=== PATIENT | female | born 1995 | race Caucasian/White ===

== ENCOUNTER 2017-12-03 | Emergency (ER) | payer SELFPAY ==
--- NOTE | 2017-12-03 15:50 | ER ---
Nurse's Notes [facility] Name: Sanaz Wilson Age: 22 yrs Sex: Female : 1995 Arrival Date: 12/03/2017 Time: 15:13 Bed Waiting Private MD: Frandy Boyce Diagnosis: Presentation: 12/03 15:38 Note called name 3 times, no answer. tw2 15:49 Note called 3 times no answer. tw2 ED Course: 15:13 Patient arrived in ED. rg4 15:13 Frandy Boyce MD is Private Physician. rg4 Administered Medications: No medications were administered Outcome: 15:50 Patient left the ED. tw2 Signatures: Mikaela Hawkins RN RN tw2 Makenna Goetz rg4
== END 2017-12-03 15:50 | disposition left against medical advice (07) ==
DX: Z53.21 Procedure and treatment not carried out due to patient leaving prior to being seen by health care provider (principal)

== ENCOUNTER 2022-08-26 11:09 | Observation (INO) | payer OTHER ==
--- OUTSIDE RECORDS SUMMARY | 2022-08-26 11:13 | XMS REPORT | Continuity of Care Document ---
:1995 Author Organization [facility] Address [address] [place] [address] [address]. [address] [place] [address] Care Team Providers Name Role Phone [email or web address] Attending Clinician Unavailable Debbie Seirra Attending Clinician Unavailable Salina Richey Attending Clinician Unavailable Beba Silva Attending Clinician Unavailable Alvino Alexandre Attending Clinician [phone] HERBERTH Admitting Clinician Unavailable Alvino Alexandre Unavailable [phone] Payers Payer Name Policy Type Policy Number Effective Date Expiration Date S ource Sliding Fee - CI [id number] 2019 2020 [facility] 1 00:00:00 00:00:00 [facility] Health Sliding Fee - MC [id number] 2019 2019 [facility] Cat 1 00:00:00 00:00:00 [facility] Health Problems Condition Condition Condition Status Onset Resolution Last Treating Co mments Source Name Details Category Date Date Treatment Clinician Date Regular Condition Active 2018-092019-06-22 Sabrina Alexandre astigmatis 0-03 10:07:36 Alvino Comm uni m, 00:00: ty bilateral 00 Health Allergies, Adverse Reactions, Alerts Allergy Allergy Status Severity Reaction(s) Onset Inactive Treating Comm ents Source Name Type Date Date Clinician SULFA Drug Active High 2018-09 [facility] allergy Criticali 0-03 Commun i (disorde ty 00:00: ty r) 00 Health Social History Social Habit Start Date Stop Date Quantity Comments Source time of call 2019-10-25 2019-10-25 10/25/2019 4:54 [facility] 16:54:27 16:54:27 PM Health Medications This patient has no known medications. Procedures Procedure Date / Time Performing Clinician Source Performed Spherocyl, GERARD plano to 2019-06-22 10:17:56 Debbie Sierra [facility] +/- 4.00d sphere, 0.12 Health to 2.00d cyl, per lens Frames, purchases 2019-06-22 10:17:43 Debbie Sierra [facility] New [facility] Intermediate 2019-06-22 10:06:13 Alvino Alexandre [facility] Opt - [id number] Health Encounters Start End Encounter Admission Attending Care Care Encounter Source Date/Time Date/Time Type Type Clinicians Facility Department ID 2022-04-17 2022-04-17 Outpatient DESAI_KES [facility] [id number] 00:00:00 00:00:00 [id number] 2019-10-25 2019-10-25 Office Debbie Sierra Leglynda En counter/ Legacy 00:00:00 00:00:00 Visit Salina Richey [facility] [id number] [id number] [facility] 2019-06-28 2019-06-28 Office Mariela [facility] Vision Encoun ter/ Legacy 00:00:00 00:00:00 Visit Debbie [id number] Com chevy [id number] [facility] 2019-06-28 2019-06-28 Office Zhanna [facility] Public Enc ounter/ Legacy 00:00:00 00:00:00 Visit zhen [facility] [id number] [facility]ly [facility] [id number] [facility] 2019-06-23 2019-06-23 Office Alvino Alexandre [facility] Vision Enc ounter/ Legacy 00:00:00 00:00:00 Visit [id number] Com chevy [id number] [facility] 2019-06-22 2019-06-22 Office Alvino Alexandre [facility] Vision Enc ounter/ Legacy 00:00:00 00:00:00 Visit [id number] Com chevy [id number] [facility] 2019-06-22 2019-06-22 Office Alvino Alexandre [facility] Vision Enc ounter/ Legacy 00:00:00 00:00:00 Visit [id number] Com chevy [id number] [facility] 2019-06-22 2019-06-22 Office Alvino Alexandre [facility] Vision Enc ounter/ Legacy 00:00:00 00:00:00 Visit [id number] Com chevy [id number] [facility] 2019-06-22 2019-06-22 Office Alvino Alexandre [facility] Vision Enc ounter/ Legacy 00:00:00 00:00:00 Visit [id number] Com chevy [id number] [facility] 2019-06-22 2019-06-22 Office Alvino Alexandre [facility] Vision Enc ounter/ Legacy 00:00:00 00:00:00 Visit Debbie Sierra [id number] [facility] [id number] [facility] 2019-06-22 2019-06-22 Office Mariela [facility] Vision Encoun ter/ Legacy 00:00:00 00:00:00 Visit Debbie [id number] Com chevy [id number] [facility] Results This patient has no known results.
[2022-08-26] MEDS ORDERED: ONDANSETRON 4 MG/2 ML VIAL ONE ×2 (11:50→15:54)
[2022-08-26] MEDS ORDERED: MORPHINE 4 MG/ML SYR ONE (11:50)
[2022-08-26 12:13] LABS: Absolute Lymphocytes (CBC) 1.3 K/uL (0.7-4.9); Hematocrit 37.2 % (36.0-45.0); Lymphocytes % 16.7 % (15.3-44.8); MCV 86.4 fL (80-100); MPV 7.5 fL (7.6-11.3)
[2022-08-26 12:26] LABS: Albumin 3.6 g/dL (3.4-5.0); Bilirubin Total 0.4 mg/dL (0.2-1.0); Potassium 3.5 mmol/L (3.5-5.1); Protein, Total 7.5 g/dL (6.4-8.2)
[2022-08-26 12:56] LABS: Urine Blood Negative (Negative); Urine Glucose Negative (Negative); Urine Protein Negative (Negative); Urine pH 5.5 (5.0-7.0)
--- NOTE | 2022-08-26 13:29 | RAD REPORT ---
EXAM DESCRIPTION: CT - Abdomen Pelvis W Contrast - 08/26/2022 1:05 pm CLINICAL HISTORY: right lower abdominal pain COMPARISON: No comparisons TECHNIQUE: Biphasic, helical CT imaging of the abdomen and pelvis was performed following 100 ml non -ionic IV contrast. Oral contrast: No. All CT scans are performed using dose optimization technique as appropriate and may include automated exposure control or mA/KV adjustment according to patient size. FINDINGS: No suspicious findings in the lung bases. The liver, spleen, and pancreas show no suspicious findings. Gallbladder is tightly contracted limiti ng assessment of the lumen. Acute gallbladder process is unlikely. No biliary tree dilatation. Renal function is symmetric with no hydronephrosis. In the superolateral right kidney there is a 13 m illimeter area of decreased parenchymal enhancement. Margins are not well defined. This does not have simple cyst characteristics. A minimal focus of pyelonephritis cannot be excluded and can be correla jackie with any UA abnormalities. No pyelonephritis or acute parenchymal process. Urinary bladder is onl y partially filled. No bladder wall thickening or edema identified. No adrenal abnormalities. Uterus and ovaries show no suspicious findings. Right ovary is along the right posterosuperior margin of the uterus probably containing cysts. Physiologic quantity of free fluid is present in the cul de sac. Stomach and small bowel show no suspicious findings. No acute finding of the colon. The appendix is abnormal. The mid and distal appendix are dilated to 13 mm. Wall is thickened and zohreh matous. There is stranding in the surrounding periappendiceal fat. No appendicolith seen. There are n umerous reactive right lower quadrant lymph nodes. No free air or pneumatosis. No abscess or abnormal fluid collections seen. No hernia, mass or bulky lymphadenopathy. A few small mesenteric lymph nodes are also present. No suspicious bony findings. Findings telephoned to the referring clinician 1325 hours IMPRESSION: Acute appendicitis. Perforation is not suspected. Appendix is in classic right lower richard drant location. Small area of diminished enhancement in the superolateral right kidney not clearly representing a cys t. Small focus of pyelonephritis cannot be excluded and needs correlation with clinical and laborator y findings.
--- NOTE | 2022-08-26 13:47 | EDPHYS ---
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 - Social history:: Smoking status: Patient denies any tobacco usage or history of. Vital Signs: 11:16 Pulse 67; Resp 15; Temp 98.0; Pulse Ox 100% ; Weight 113.4 kg; Height 5 ft. 6 in. vg1 (167.64 cm); Pain 6/10; 12:50 BP 136 / 96; Pulse 71; Resp 16 S; Pulse Ox 99% on R/A; Pain 4/10; kc6 11:16 Body Mass Index 40.35 (113.40 kg, 167.64 cm) vg1 MDM: 11:22 Patient medically screened. [facility] 13:45 Data reviewed: vital signs, nurses notes. Counseling: I had a detailed discussion with kathryn the patient and/or guardian regarding: the historical points, exam findings, and any diagnostic results supporting the discharge/admit diagnosis, lab results, radiology results, the need for further work-up and treatment in the hospital. 08/26 11:23 Order name: IV Saline Lock; Complete Time: 12:03 [facility] 08/26 11:23 Order name: Labs collected and sent; Complete Time: 12:03 [facility] 08/26 11:23 Order name: CBC with Diff; Complete Time: 12:26 [facility] 08/26 11:23 Order name: CMP; Complete Time: 12:26 [facility] 08/26 11:23 Order name: Lipase; Complete Time: 12:26 [facility] 08/26 11:23 Order name: Urine Dipstick-Ancillary (obtain specimen); Complete Time: 12:56 [facility] 08/26 11:23 Order name: Urine Test (obtain specimen); Complete Time: 12:56 [facility] 08/26 12:56 Order name: Urine --Ancillary (enter results); Complete Time: 13:17 bd 08/26 11:23 Order name: CT Abd/Pelvis - IV Contrast Only; Complete Time: 13:35 [facility] 08/26 12:56 Order name: Urine Dipstick-Ancillary; Complete Time: 13:17 EDMS Administered Medications: 12:03 Drug: Zofran (Ondansetron) 4 mg Route: IVP; Site: right antecubital; kc6 12:03 Drug: morphine 4 mg Route: IVP; Infused Over: 4 mins; Site: right antecubital; kc6 Disposition Summary: 08/26/22 13:46 Hospitalization Ordered Hospitalization Status: Observation [facility] Provider: Ab Coats Location: Operating Room [facility] Condition: Stable [facility] Problem: new [facility] Symptoms: are unchanged [facility] Bed/Room Type: Standard [facility] Room Assignment: [facility] Diagnosis - Acute appendicitis [facility] - UTI/ Urinary tract infection, site not specified [facility] Forms: - Medication Reconciliation Form [facility] - SBAR form [facility] Signatures: Dispatcher [employer] EDMS Terell Serrano PA PA [facility] Alka Goetz, RN RN vg1 Rosa Mendez RN RN kc6
--- NOTE | 2022-08-26 13:47 | ER ---
Nurse's Notes [facility] Name: Sanaz Wilson Age: 26 yrs Sex: Female : 1995 Arrival Date: 08/26/2022 Time: 11:12 Bed 7 Private MD: Diagnosis: Acute appendicitis;UTI/ Urinary tract infection, site not specified Presentation: 08/26 11:16 Chief complaint: Patient states: RLQ pain x 2 days, states nausea denies V/D. vg1 Coronavirus screen: Vaccine status: Patient reports being unvaccinated. Client denies travel out of the [place] in the last 14 days. Ebola Screen: Patient negative for fever greater than or equal to 101.5 degrees Fahrenheit, and additional compatible Ebola Virus Disease symptoms. Initial Sepsis Screen: Does the patient meet any 2 criteria? No. Patient's initial sepsis screen is negative. Does the patient have a suspected source of infection? No. Patient's initial sepsis screen is negative. Risk Assessment: Do you want to hurt yourself or someone else? Patient reports no desire to harm self or others. Onset of symptoms was August 24, 2022. 11:16 Method Of Arrival: Ambulatory vg1 11:16 Acuity: NOAH 3 vg1 Triage Assessment: 11:19 General: Appears uncomfortable, Behavior is calm, cooperative. Pain: Complains of pain vg1 in right lower quadrant Pain currently is 6 out of 10 on a pain scale. GI: Abdomen is round non-distended, obese, Last BM was August 26, 2022. Reports nausea. 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 - Social history:: Smoking status: Patient denies any tobacco usage or history of. Screenin:06 Abuse screen: Denies threats or abuse. Denies injuries from another. Nutritional kc6 screening: No deficits noted. Tuberculosis screening: No symptoms or risk factors identified. Fall Risk None identified. Assessment: 12:04 General: Appears in no apparent distress. comfortable, Behavior is calm, cooperative, kc6 appropriate for age. Pain: Complains of pain in right lower quadrant Pain does not radiate. Pain currently is 6 out of 10 on a pain scale. Quality of pain is described as burning, heavy, pressure, sharp, Pain began 2-3 days ago. Is continuous, Alleviated by nothing. Also complains of no other associated symptoms. Neuro: Reese Agitation-Sedation Scale (RASS): 0 - Alert and Calm Level of Consciousness is awake, alert, obeys commands, Oriented to person, place, time, situation, Appropriate for age. Cardiovascular: Heart tones S1 S2 present Capillary refill < 3 seconds. Respiratory: Airway is patent Trachea midline Respiratory effort is even, unlabored, Respiratory pattern is regular, symmetrical, Breath sounds are clear bilaterally. GI: Abdomen is flat, non-distended, Bowel sounds present X 4 quads. Abd is soft X 4 quads Abdomen is tender to palpation in right lower quadrant Reports nausea, Patient currently denies diarrhea, vomiting. : No signs and/or symptoms were reported regarding the genitourinary system. EENT: No signs and/or symptoms were reported regarding the EENT system. Derm: No signs and/or symptoms reported regarding the dermatologic system. Skin is intact, Skin is pink, warm \T\ dry. Musculoskeletal: No signs and/or symptoms reported regarding the musculoskeletal system. Circulation, motion, and sensation intact. Capillary refill < 3 seconds, Range of motion: intact in all extremities. 12:50 Reassessment: Patient appears in no apparent distress at this time. No changes from kc6 previously documented assessment. Patient and/or family updated on plan of care and expected duration. Pain level reassessed. Patient is alert, oriented x 3, equal unlabored respirations, skin warm/dry/pink. Vital Signs: 11:16 Pulse 67; Resp 15; Temp 98.0; Pulse Ox 100% ; Weight 113.4 kg; Height 5 ft. 6 in. vg1 (167.64 cm); Pain 6/10; 12:50 BP 136 / 96; Pulse 71; Resp 16 S; Pulse Ox 99% on R/A; Pain 4/10; kc6 11:16 Body Mass Index 40.35 (113.40 kg, 167.64 cm) vg1 ED Course: 11:12 Patient arrived in ED. mr 11:18 Terell Serrano PA is PHCP. jmm 11:19 Triage completed. vg1 11:19 Arm band placed on. vg1 11:43 Rosa Mendez, RN is Primary Nurse. kc6 12:03 CBC with Diff Sent. kc6 12:03 CMP Sent. kc6 12:03 Lipase Sent. kc6 12:04 Inserted saline lock: 20 gauge in right antecubital area, using aseptic technique. kc6 Blood collected. 13:07 CT Abd/Pelvis - IV Contrast Only In Process Unspecified. EDMS 13:46 Ab Coats MD is Hospitalizing Provider. kathryn Administered Medications: 12:03 Drug: Zofran (Ondansetron) 4 mg Route: IVP; Site: right antecubital; kc6 12:03 Drug: morphine 4 mg Route: IVP; Infused Over: 4 mins; Site: right antecubital; kc6 Outcome: 13:46 Decision to Hospitalize by Provider. kathryn Signatures: Dispatcher [employer] EDMS Terell Serrano PA PA jmm Rivera, Mary mr Alka Goetz, RN RN vg1 Rosa Mendez, RN RN kc6
[2022-08-26] MEDS ORDERED: NA CHLORIDE 0.9% 100 ML IV ONE (13:59)
[2022-08-26] MEDS ORDERED: PIPERACIL/TAZO 3.375 GM VIAL IV ONE (14:00)
[2022-08-26] MEDS ORDERED: DIPHENHYDRAMINE 50 MG/ML VIAL ONE (14:39)
[2022-08-26] MEDS ORDERED: METRONIDAZOLE 500mg IVPB 500 MG/100 ML BAG IV ONE (14:52)
[2022-08-26] MEDS ORDERED: propofoL 200 MG/20 ML VIAL IV ONE (14:54)
[2022-08-26] MEDS ORDERED: LIDOCAINE 2% MPF 5 ML VIAL ONE (14:57)
[2022-08-26] MEDS ORDERED: FENTANYL CITR 100 MCG/2 ML ONE (14:58)
[2022-08-26] MEDS ORDERED: ROCURONIUM 50 MG/5 ML VIAL IV ONE (14:58)
[2022-08-26] MEDS ORDERED: ONDANSETRON 4 MG/2 ML VIAL IV PRN (15:04)
[2022-08-26] MEDS ORDERED: SUCCINYLCHOLINE 20 MG/ML (10 ML) IV ONE (15:06)
[2022-08-26] MEDS ORDERED: Ringers Lactate 1,000 ML IV ONE (15:10)
[2022-08-26 15:16] LABS: SARS-CoV-2 Antigen Rapid Res Negative (Negative)
[2022-08-26 15:24] VITALS: BMI 40.3
[2022-08-26] MEDS: CIPROFLOXACIN 400mg IV 400 MG/200 ML BAG IV ONE ×2 (15:44→16:04)
[2022-08-26] MEDS ORDERED: dexAMETHasone 10 MG/ML VIAL ONE (15:53)
[2022-08-26] MEDS ORDERED: KETOROLAC 30 MG/ML INJ ONE (15:54)
--- NOTE | 2022-08-26 15:58 | P.HP ---
Date of Service: 08/26/22 PC: This 26-year-old female presented to the emergency room with severe right lower quadrant abdominal pain for diagnosis and treatment. HPC: Patient states he has been sick for the last 48 hours. Had some nausea and vomiting initially. Yesterday noticed lower abdominal pain, thought it may be ovarian. Today the pain was more severe, hurt when she tried to walk. Noticed the bumps on the way over here when she was driven to the hospital by her sister. PSHx: Negative PMHx: 2 para 2 Social Hx: Allergic to penicillin, sulfa, tazobactam Sys R: No cough, wheeze, shortness of breath. No chest pain or palpitations. Has been wearing a boot for her an injury to her lower leg. Was scheduled for carpal tunnel syndrome tomorrow. O/E: Awake alert vital signs are stable HEENT: Not jaundiced Chest: Chest movement equal bilaterally Abd: Tender with guarding in the right lower quadrant [place]: Intact Data: CT scan supports clinical diagnosis of acute abdomen with appendicitis. Impression: Acute abdomen with appendicitis Plan: I will take to the operating room for laparoscopic possible open appendectomy. The risks of this procedure have been discussed. The possibility of bleeding, infection, injury to bowel blood vessels has been described. The possible need for an open and or further surgeries and procedures was discussed. She understands and wants to proceed.
[2022-08-26] MEDS ORDERED: GLYCOPYRROLATE 0.2 MG/ML SYR ONE (16:14)
[2022-08-26] MEDS ORDERED: NEOSTIGMINE 1 MG/ML -5 ML ONE (16:21)
--- NOTE | 2022-08-26 16:57 | P.OP ---
Preoperative diagnosis: Acute abdomen with appendicitis Postoperative diagnosis: The same Primary procedure: Laparoscopic Anesthesia: General Estimated blood loss: Less than 10 cc Specimen: 1 appendix Operative Technique: The patient brought the operating room and placed supine on the table. After the induction of adequate general endotracheal anesthesia, there the abdomen was prepped with a DuraPrep solution, she was draped in usual aseptic manner. A subumbilical incision was made. This brought down through the skin and subcutaneous tissue. The Visiport was now used to enter the peritoneal cavity a nd created pneumoperitoneum to approximately 12 mmHg. Under direct vision a 5 mm trocar was placed in the lower midline, and another 5 on the right lateral side of the abdomen. We were able to visualize the right lower quadrant. There was an inflammatory process that we noticed. The omentum was adherent in this area. It was gently taken off with some adhesions. We identified the appendix itself. A piece of small bowel was adherent to his serosal surface. This was gently dissected away. We now had exposed the appendix. It was noted to be quite distended in its distal portion. Just at the junction of the appendix with the cecum a opening was made through the mesentery in this area. The linear stapler was now introduced into the peritoneal cavity and placed across the base of the appendix and fired. The mesentery of the appendix was now carefully teased down using judicious use of the hook and electrocautery. We were finally able to place a linear stapler across this and fired. The appendix having been detached was placed into an Endo Catch and brought out through the umbilical trocar site. There was inspected to ensure adequate hemostasis. The irrigating fluid was aspirated from the peritoneal cavity. The pneumoperitoneum was now collapsed, the umbilical trocar which had been in removed and the fascia approximated with an absorbable suture was tied. Al were then applied to the skin. At the end of the procedure she was stable and sent to the recovery room. Needle sponge and instrument count were correct. No drains were placed. Complications: None Transferred to: Recovery Room Condition: Good
[2022-08-26] MEDS: HYDROMORPHONE HCL 1 MG/ML INJ ONE ×4 (17:03→17:20)
[2022-08-26] MEDS ORDERED: HYDROCODONE/APAP 7.5/325 MG TAB PO PRN (17:13)
[2022-08-26] MEDS: D5 0.45 NS 1,000 ML IV SCH (19:51)
[2022-08-26] MEDS ORDERED: INFLUENZA VACCINE (for 6+ mo) 0.5 ML DOSE IMVAC ONE (21:00)
[2022-08-27] MEDS: HYDROMORPHONE HCL 1 MG/ML INJ IV PRN ×3 (01:19→15:50)
[2022-08-27] MEDS: D5 0.45 NS 1,000 ML IV SCH ×2 (02:17→09:41)
[2022-08-27 10:06] VITALS: O2SAT 96
[2022-08-27 16:32] VITALS: BP 133/69; TEMP 97.5
== END 2022-08-27 16:30 | disposition home or self-care (01) ==
LOC: ER 11:09 → ERHOLD 15:04 → 2ND 16:21
PROVIDERS: ADMIT Surgery; ATTEND Surgery
PROC: 0DTJ4ZZ Resection of Appendix, Percutaneous Endoscopic Approach (ICD-10-PCS; principal; 2022-08-26 13:45)
DX: K35.80 Unspecified acute appendicitis (principal); N39.0 Urinary tract infection, site not specified; Z20.822 Contact with and (suspected) exposure to COVID-19; Z23 Encounter for immunization
CPT/HCPCS: 36415; 74177; 80053; 81003; 81025; 83690; 85025; 87811; 88304; 99285; G0378; J0330; J0744; J1100; J1170; J1200; J2001; J2405; J2543; J2704; J2710; J3010; J7120; J7799; Q9967

== ENCOUNTER 2025-01-29 21:14 | Inpatient (IN) | payer OTHER ==
--- OUTSIDE RECORDS SUMMARY | 2025-01-29 21:17 | XMS REPORT | Continuity of Care Document ---
Author Name Unknown Address [address] [facility] [address] [place] [address] [facility] Address [address] [facility] [place] [address] Care Team Providers Care Tanker Service Attendant Name Role Phone TATIANA GUTIERREZ Primary Care Physician Unavailab CHRISTOPHER Wilson Attending Clinician Unavailable CHRISTOPHER VASQUEZ Attending Clinician Unavailable HAO BERGMAN Attending Clinician Unavaila ble 2, [facility] Attending Clinician Unavailable Christopher Vasquez MD Attending Clinician [phone] Doctor Unassigned, Posey Attending Clinician U navailTERRIE Tsai Attending Clinician Unavailable Terrie Isaac Attending Clinician [phone] TATIANA GUTIERREZ Attending Clinician Unavailable TATIANA GUTIERREZ Attending Clinician Unavailable Ayde Spence MD Attending Clinician + [phone] AYDE SPENCE Attending Clinician UnaDENA Farrell Attending Clinician Unavailable Dena Henriquez Attending Clinician [phone] Lab Ang - Db Attending Clinician Unavailable KATIE DURAN Attending Clinician Unavailable Katie Duran MD Attending Clinician [phone] HERBERTH Attending Clinician Unavailable Debbie Sierra Attending Clinician Unavailable Salina Richey Attending Clinician Unavailable Beba Silva Attending Clinician UnavailAlvino Allen Attending Clinician [phone] CARLOSKRISTIAN Admitting Clinician Unavailable Alvino Alexandre Unavailable [id number] Payers Payer Name Policy Type Policy Number Effective Date Expirati on Date Source CIGNA II [id number] 2020 00:00:00 CIGNA CI [id number] 2019 00:00:00 2020 00:00:00 [facility] CIGNA MC [id number] 2019 00:00:00 2019 00:00:00 [facility] Problems Condition Name Condition Details Condition Category Status Onset Date Resolution Date Last Treatment Date Treating Clinician Comments Source Otalgia of both ears Otalgia of both ears Disease Active 01-13 00:00: 00 [facility] Post-nasal drip Post-nasal drip Disease Active 01-13 00:00: 00 [facility] Non-recurr ent acute allergic otitis media of both ears Non-recurr ent acute allergic otitis media of both ears Disease Active 01-13 00:00: 00 [facility] Aphthous ulcer of mouth Aphthous ulcer of mouth Disease Active 01-13 00:00: 00 [facility] Regular astigmatis m, bilateral Condition Active 2018-09 0 00:00: 00 2019-06-22 10:07:36 Alvino Alexandre [facility] Morbid obesity Morbid obesity Disease Active 01-18 00:00: 00 [facility] Foot pain, right Foot pain, right Disease Active 3-16 00:00: 00 [facility] Immune to varicella Immune to varicella Disease Active 01-18 00:00: 00 [facility] Oral contracept john use Oral contracept john use Disease Resolve d 01-18 00:00: 00 2022-11-17 00:00:00 2022-11-17 15:41:43 [facility] Encounter for surveillan ce of contracept siddhartha Encounter for surveillan ce of contracept siddhartha Disease Resolve d 1- 00:00: 00 2022-11-17 00:00:00 2022-11-17 15:41:46 [facility] Anemia Anemia Disease Resolve d 9- 00:00: 00 2022-11-17 00:00:00 2022-11-17 15:41:44 [facility] Rubella immune Rubella immune Disease Resolve d 01-18 00:00: 00 2022-11-17 00:00:00 2022-11-17 15:41:53 [facility] Insertion of Nexplanon Insertion of Nexplanon Disease Resolve d 09-27 00:00: 00 2018-01-18 00:00:00 2018-01-18 14:14:40 [facility] Obesity complicati ng , childbirth , or puerperium , antepartum Obesity complicati ng , childbirth , or puerperium , antepartum Disease Resolve d 20 00:00: 00 2018-01-18 00:00:00 2022-04-05 00:35:39 [facility] Anemia, antepartum , third trimester Anemia, antepartum , third trimester Disease Resolve d 6-19 00:00: 00 2015-06-07 00:00:00 2015-06-07 14:01:26 [facility] Screening for diabetes mellitus Screening for diabetes mellitus Disease Resolve d 4-20 00:00: 00 2015-06-07 00:00:00 2015-06-07 14:08:49 [facility] High-risk High-risk Disease Resolve d 0 4-20 00:00: 00 2015-06-07 00:00:00 2022-04-05 00:35:39 [facility] H/O shoulder dystocia in prior , currently , unspecifie d trimester H/O shoulder dystocia in prior , currently , unspecifie d trimester Disease Resolve d 4-20 00:00: 00 2015-06-07 00:00:00 2015-06-07 14:08:58 [facility] Dizziness and giddiness Dizziness and giddiness Disease Resolve d 01-07 00:00: 00 2015-06-07 00:00:00 2015-06-07 14:09:01 [facility] Other malaise and fatigue Other malaise and fatigue Disease Resolve d 01-07 00:00: 00 2015-06-07 00:00:00 2015-06-07 14:08:53 [facility] Allergies, Adverse Reactions, Alerts Allergy Name Allergy Type Status Severity Reaction(s) Onset Date Inactive Date Treating Clinician Comments Source PIPERACI LLIN-ROSALIO OBACTAM DRUG Active High Swelling 2021-09 00:00: 00 [facility] Piperaci llin-Rosalio obactam Propensi ty to adverse reaction s to drug Active Swelling 2021-09 00:00: 00 [facility] Piperaci llin-Rosalio obactam Propensi ty to adverse reaction s Active Swelling 2021-09 00:00: 00 [facility] SULFA Drug allergy (disorde r) Active High Criticali ty 2018-09 0-03 00:00: 00 [facility] SULFA (SULFONA MIDE ANTIBIOT ICS) Drug Class Active High Hives 01-07 00:00: 00 [facility] Sulfa (Sulfona mide Antibiot ics) Drug Intolera nce Active Hives 01-07 00:00: 00 [facility] Social History Social Habit Start Date Stop Date Quantity Comments [facility] History of Social function 2024-09-14 00:00:00 2024-09-14 00:00:00 [facility] Alcoholic beverage intake 2024-09-14 00:00:00 2024-09-14 00:00:00 Ex-drinker (finding) [facility] Alcohol intake 2023-12-31 00:00:00 2023-12-31 00:00:00 Ex-drinker (finding) [facility] Exposure to SARS-CoV-2 (event) 2023-01-03 00:00:00 2023-01-13 10:43:00 Not sure [facility] Tobacco use and exposure 2022-11-17 00:00:00 2022-11-17 00:00:00 Smokeless tobacco non-user [facility] time of call 2019-10-25 16:54:27 2019-10-25 16:54:27 10/25/2019 4:54 PM [facility] Sex assigned at 1995 00:00:00 1995 00:00:00 [facility] Smoking Status Start Date Stop Date Source Never smoked tobacco [facility] Medications Ordered Medication Name Filled Medication Name Start Date Stop Date Current Medication? Ordering Clinician Indication Dosage Frequency Signature (SIG) Comments Components Source SERTraline (ZOLOFT) 25 mg tablet 2023-09 00:00: 00 Yes [id number] 25mg Take 1 tablet by mouth SEE-INSTRU CTIONS. [facility] methylPREDN ISolone (MEDROL, ARNOLD,) 4 mg tablets 12-30 00:00: 00 09-14 00:00 :00 No [id number] Take by mouth SEE-INSTRU CTIONS. follow package directions [facility] azelastine 137 mcg (0.1 %) nasal spray 12-30 00:00: 00 09-14 00:00 :00 No [id number] 1{spray } Use 1 [place] in each nostril in the morning and 1 [place] in the evening. Use in each nostril as directed [facility] benzonatate (TESSALON PERLES) 100 mg capsule 12-30 00:00: 00 09-14 00:00 :00 No [id number] 100mg Take 1 capsule by mouth every 8 (eight) hours as needed for Cough. [facility] azithromyci n 500 mg tablet 04-21 00:00: 00 12-30 00:00 :00 No [id number] 500mg Take 1 tablet by mouth in the morning. [facility] ondansetron 4 mg disintegrat ing tablet 04-09 00:00: 04-21 00:00 :00 No [id number] 4mg Take 1 tablet by mouth every 8 (eight) hours as needed for Nausea and Vomiting (N/V). [facility] naproxen 500 mg tablet 04-09 00:00: 04-21 00:00 :00 No [id number] 500mg Take 1 tablet by mouth in the morning and 1 tablet in the evening. Take with meals. [facility] azelastine 137 mcg (0.1 %) nasal spray 01-13 00:00: 00 04-21 00:00 :00 No [id number] 1{spray } Use 1 [place] in each nostril in the morning and 1 [place] in the evening. Use in each nostril as directed [facility] lidocaine 2% viscous 2 % solution 01-13 00:00: 00 04-09 00:00 :00 No [id number] 10mL Take 10 mL by mouth every 4 (four) hours as needed for Oral mucosal pain. [facility] ibuprofen 600 mg tablet 01-13 00:00: 00 01-28 04:59 :00 No [id number] 600mg Take 1 tablet by mouth every 6 (six) hours as needed for Temp > 38.5 C for up to 14 days. [facility] SUMAtriptan 25 mg tablet 4-10 00:00: 00 09-14 00:00 :00 No [id number] 25mg Take 1 tablet by mouth as needed for Migraine. May repeat dose if symptoms have not resolved in 2 hours [facility] ondansetron 4 mg disintegrat ing tablet 4-10 00:00: 00 04-09 00:00 :00 No [id number] 4mg Take 1 tablet by mouth every 8 (eight) hours as needed for Nausea and Vomiting (N/V). [facility] Norethindro ne Acet-Ethiny l Est (LOESTRIN 1.5/, ,) 1.5-30 mg-mcg per tablet 01-18 00:00: 00 11-17 00:00 :00 No [id number] 1{tbl} Take 1 tablet by mouth daily. [facility] Immunizations Ordered Immunization Name Filled Immunization Name Date Status Comments Source TDAP 2023-12-31 07:30:00 Completed [facility] TDAP 2023-12-31 00:00:00 Completed [facility] TDAP 2023-07-02 00:00:00 Completed [facility] TDAP 2015-02-12 00:00:00 Completed [facility] TDAP 2015-02-12 00:00:00 Completed [facility] TDAP 2015-02-12 00:00:00 Completed [facility] TDAP 2015-02-12 00:00:00 Completed [facility] TDAP 2015-02-12 00:00:00 Completed [facility] TDAP 2015-02-12 00:00:00 Completed [facility] TDAP 2015-02-12 00:00:00 Completed [facility] Vital Signs Vital Name Observation Time Observation Value Comments S ource Heart rate 2024-09-14 16:33:00 69 /min General acute hospital Body temperature 2024-09-14 16:33:00 36.78 [place] [facility] Respiratory rate 2024-09-14 16:33:00 18 /min [facility] Body height 2024-09-14 16:33:00 167.6 cm [facility] Body weight 2024-09-14 16:33:00 117.935 kg [facility] BMI 2024-09-14 16:33:00 41.97 kg/m2 [facility] Systolic blood pressure 2023-12-31 12:23:00 128 mm[Hg] [facility] Diastolic blood pressure 2023-12-31 12:23:00 68 mm[Hg] [facility] Heart rate 2023-12-31 12:23:00 85 /min General acute hospital Body temperature 2023-12-31 12:23:00 36.78 [place] [facility] Body height 2023-12-31 12:23:00 167.6 cm [facility] Body weight 2023-12-31 12:23:00 117.572 kg [facility] BMI 2023-12-31 12:23:00 41.84 kg/m2 [facility] Oxygen saturation in Arterial blood by Pulse oximetry 2023-12-31 12:23:00 99 /min [facility] Systolic blood pressure 2023-04-21 19:51:00 128 mm[Hg] [facility] Diastolic blood pressure 2023-04-21 19:51:00 84 mm[Hg] [facility] Heart rate 2023-04-21 19:51:00 82 /min Unive [facility] Body temperature 2023-04-21 19:51:00 37.17 [place] [facility] Body height 2023-04-21 19:51:00 167.6 cm [facility] Body weight 2023-04-21 19:51:00 114.76 kg [facility] BMI 2023-04-21 19:51:00 40.84 kg/m2 [facility] Systolic blood pressure 2023-04-09 19:44:00 123 mm[Hg] [facility] Diastolic blood pressure 2023-04-09 19:44:00 74 mm[Hg] [facility] Heart rate 2023-04-09 19:44:00 58 /min Unive [facility] Body temperature 2023-04-09 19:44:00 36.72 [place] [facility] Body height 2023-04-09 19:44:00 168.9 cm Univ [facility] Body weight 2023-04-09 19:44:00 115.304 kg [facility] BMI 2023-04-09 19:44:00 40.41 kg/m2 [facility] Oxygen saturation in Arterial blood by Pulse oximetry 2023-04-09 19:44:00 100 /min [facility] Systolic blood pressure 2023-01-13 16:02:00 115 mm[Hg] [facility] Diastolic blood pressure 2023-01-13 16:02:00 74 mm[Hg] [facility] Heart rate 2023-01-13 16:02:00 53 /min Unive [facility] Body temperature 2023-01-13 16:02:00 36.72 [place] [facility] Body height 2023-01-13 16:02:00 168.9 cm [facility] Body weight 2023-01-13 16:02:00 117.028 kg Univ [facility] BMI 2023-01-13 16:02:00 41.02 kg/m2 [facility] Oxygen saturation in Arterial blood by Pulse oximetry 2023-01-13 16:02:00 100 /min [facility] Systolic blood pressure 2022-12-28 17:55:00 129 mm[Hg] [facility] Diastolic blood pressure 2022-12-28 17:55:00 84 mm[Hg] [facility] Body temperature 2022-12-28 17:55:00 36.22 [place] [facility] Respiratory rate 2022-12-28 17:55:00 18 /min [facility] Body height 2022-12-28 17:55:00 168.9 cm [facility] Body weight 2022-12-28 17:55:00 119.931 kg [facility] BMI 2022-12-28 17:55:00 42.04 kg/m2 [facility] Oxygen saturation in Arterial blood by Pulse oximetry 2022-12-28 17:55:00 100 /min [facility] Systolic blood pressure 2022-11-17 21:06:00 131 mm[Hg] [facility] Diastolic blood pressure 2022-11-17 21:06:00 91 mm[Hg] [facility] Heart rate 2022-11-17 21:06:00 81 /min Unive [facility] Body temperature 2022-11-17 21:06:00 36.78 [place] [facility] Respiratory rate 2022-11-17 21:06:00 16 /min [facility] Body height 2022-11-17 21:06:00 167.6 cm [facility] Body weight 2022-11-17 21:06:00 118.842 kg [facility] BMI 2022-11-17 21:06:00 42.29 kg/m2 [facility] Oxygen saturation in Arterial blood by Pulse oximetry 2022-11-17 21:06:00 98 /min [facility] Procedures Procedure Date / Time Performed Performing Clinician Source Spherocyl, SV, plano to +/- 4.00d sphere, 0.12 to 2.00d cyl, per lens 2019-06-22 10:17:56 Sierra, [facility] Frames, purchases 2019-06-22 10:17:43 Mariela [facility] New Patient Intermediate Opth - [id number] 2019-06-22 10:06:13 Alvino Alexandre [facility] Encounters Start Date/Time End Date/Time Encounter Type Admission Type Attending Clinicians Care Facility Care Department Encounter ID Source 2024-11-13 11:00:00 2024-11-13 11:00:00 Outpatient CHRISTOPHER WILL VIEN [facility] [id number] [facility] 2024-10-16 15:00:00 2024-10-16 15:00:00 Outpatient HAO BARROSO [facility] [id number] [facility] 2024-09-14 13:30:00 2024-09-14 13:30:00 Rough And Truing Machine Operator Visit 2, Adc Lab Christopher Vasquez 2, Adc Lab [facility] 1.2.840.114 350.1.13.10 4.2.7.2.686 [id number] [facility] 2024-09-14 13:00:00 2024-09-14 13:00:00 Outpatient HAO BARROSO [facility] [id number] [facility] 2024-09-14 10:30:00 2024-09-14 11:12:27 Outpatient CHRISTOPHER WILL VIEN [facility] [id number] [facility] 2024-09-14 10:30:00 2024-09-14 11:12:27 Office Visit Christopher Vasquez [facility] 1..840.114 350.1.13.10 4.2.7.2.686 [id number] [facility] 2023-12-31 00:00:00 2024-02-05 18:09:37 Patient Secure Msg Doctor Unassigned, Posey [facility] 1.840.114 350.1.13.10 4.2.7.2.686 [id number] [facility] 2023-12-31 07:30:00 2023-12-31 07:45:23 Outpatient R TERRIE CERON [facility] [id number] [facility] 2023-12-31 07:30:00 2023-12-31 07:45:23 [facility] 1..840.114 350..13.10 4.2.7.2.686 [id number] [facility] 2023-07-12 10:20:00 2023-07-12 10:20:00 Outpatient R TATIANA GUTIERREZ [facility] [id number] [facility] 2023-07-02 00:00:00 2023-07-02 00:00:00 [facility] 1..840.114 350.1.13.10 4.2.7.2.686 [id number] [facility] 2023-05-10 00:00:00 2023-05-10 00:00:00 Outpatient R TATIANA GUTIERREZ [facility] [id number] [facility] 2023-04-21 15:15:00 2023-04-21 15:30:00 [facility] 1..840.114 350.1.13.10 4.2.7.2.686 [id number] [facility] 2023-04-21 15:15:00 2023-04-21 15:01:22 Outpatient Chito VELAZQUEZMARILUAYDE [facility] [id number] [facility] 2023-04-09 14:40:00 2023-04-09 15:21:39 Outpatient R TATIANA GUTIERREZ [facility] [id number] [facility] 2023-04-09 14:40:00 2023-04-09 15:21:39 Office Visit Matt [facility] 1.2.840.114 350.1.13.10 4.2.7.2.686 [id number] [facility] 2023-01-26 11:00:00 2023-01-26 11:00:00 Outpatient R TATIANA GUTIERREZ [facility] [id number] [facility] 2023-01-13 11:00:00 2023-01-13 11:11:43 Outpatient R DENA BOB [facility] [id number] [facility] 2023-01-13 11:00:00 2023-01-13 11:11:43 Office Visit [facility] 1.2.840.114 350.1.13.10 4.2.7.2.686 [id number] [facility] 2023-01-12 09:40:00 2023-01-12 09:40:00 Outpatient R TATIANA GUTIERREZ [facility] [id number] [facility] 2022-12-28 14:00:00 2022-12-28 14:15:00 Rough And Truing Machine Operator Visit Lab, Allen Gutierrez [facility] 1.2.840.114 350.1.13.10 4.2.7.2.686 [id number] [facility] 2022-12-28 13:00:00 2022-12-28 13:47:40 Outpatient R TATIANA GUTIERREZ [facility] [id number] [facility] 2022-12-28 13:00:00 2022-12-28 13:40:00 Office Visit Matt [facility] TEETEE MACIEL?[facility] 1.2.840.114 350.1.13.10 4.2.7.2.686 [id number] [facility] 2022-11-17 15:00:00 2022-11-17 15:41:54 Outpatient KATIE VELASQUEZ [facility] [id number] [facility] 2022-11-17 15:00:00 2022-11-17 15:41:54 Office Visit Katie Duran [facility] 1.2.840.114 350.1.13.10 4.2.7.2.686 [id number] [facility] 2022-04-17 00:00:00 2022-04-17 00:00:00 Outpatient PHAM_MAURY Neal [facility] [id number] 2019-10-25 00:00:00 2019-10-25 00:00:00 Office Visit Debbie Sierra Anahi G [facility] Services Contact Center En[id number] 00:00:00 2019-06-28 00:00:00 Office Visit Debbie Sierra [facility] Encounter/ [id number] [facility] 2019-06-28 00:00:00 2019-06-28 00:00:00 Office Visit Beba Washington [facility] Public Health Services Encounter/ [id number] [facility] 2019-06-23 00:00:00 2019-06-23 00:00:00 Office Visit Baldomero Alvino [facility] Encounter/ [id number] [facility] 2019-06-22 00:00:00 2019-06-22 00:00:00 Office Visit Baldomero Alvino [facility] Encounter/ [id number] [facility] 2019-06-22 00:00:00 2019-06-22 00:00:00 Office Visit Cynthia Alexandren [facility] Encounter/ [id number] [facility] 2019-06-22 00:00:00 2019-06-22 00:00:00 Office Visit ParrishxavierAlvino [facility] Encounter/ [id number] [facility] 2019-06-22 00:00:00 2019-06-22 00:00:00 Office Visit Alvino Alexandre Laurie [facility] Encounter/ [id number] [facility] 2019-06-22 00:00:00 2019-06-22 00:00:00 Office Visit MarielaDebbie [facility] Encounter/ [id number] [facility] 2019-06-22 00:00:00 2019-06-22 00:00:00 Office Visit Cynthia Alexandren [facility] Encounter/ [id number] [facility] Notes Date/Time Note Provider Source 2024-09-14 13:30:00 Images from the original note were not included. Venipuncture collection performed by clean technique on the left anticubitus. Total of 1 attempts were made. Slight pressure and a bandage/dressing were applied to the site(s). The patient experienced no complications. The following specimens were processed according to instructions and sent to [facility] laboratories per lab order on 09/14/2024 : LT BLUE SST 1 RED LAV 1 PPT DK GREEN (LiHep) DK GREEN (SodH) ZELAYA DK BLUE (K2) DK BLUE (S) ACD Blood Culture NIPT/NTD ET FLUSHER DRIVER [facility] 2023-04-09 14:40:00 Addended by: Giovanni GUTIERREZ on: 04/27/2023 08:21 AM Modules accepted: Orders [facility]
[2025-01-29 22:45] LABS: PT Prothrombin Time 12.4 SECONDS (10-13.0); Protime INR 1.09
[2025-01-29 22:49] LABS: D-Dimer < 0.215 FEUug/mL (0-0.500)
[2025-01-29 22:50] LABS: Absolute Lymphocytes (CBC) 1.6 K/uL (0.7-4.9); Absolute Monocytes 0.4 K/uL (0.1-1.3); Absolute Neutrophil 6.9 K/uL (1.8-8.0); Basophils % 0.2 % (0-1.3); Eosinophils % 0.3 % (0-4.4); Hematocrit 38.4 % (36.0-45.0); Hemoglobin 13.2 g/dL (12.0-15.0); Lymphocytes % 18.1 % (15.3-44.8); MCH 29.8 pg (27.0-35.0); MCHC 34.4 g/dL (32.0-36.0); MCV 86.8 fL (80-100); MPV 8.2 fL (7.6-11.3); Monocytes % 4.5 % (3.3-12.3); Neutrophils % 76.9 % (41.7-73.7); Nucleated Red Blood Cells % 0.1 % (0-0); Platelets 237 thou/uL (152-406); RBC Red Blood Cell Count 4.43 M/uL (3.86-4.86); Red Cell Distribution Width 13.6 % (12.1-15.2)
[2025-01-29 22:56] LABS: ALT/SGPT 22 U/L (13-56); AST/SGOT 16 U/L (15-37); Albumin 3.9 g/dL (3.4-5.0); Albumin/Globulin Ratio 1.1 (1.1-1.8); Alkaline Phosphatase 83 U/L (45-117); Anion Gap 9.7 mEq/L (5.0-15.0); BUN Blood Urea Nitrogen 14 mg/dL (7-18); Bicarbonate 25 mEq/L (21-32); Bilirubin Total 0.3 mg/dL (0.2-1.0); Globulin 3.4 g/dL (2.3-3.5); Glomerular Filtration Rate 75 ml/min (=/>90); Glucose Level 95 mg/dL (74-106); Magnesium 1.8 mg/dL (1.6-2.4); Potassium 3.7 mEq/L (3.5-5.1); Protein, Total 7.3 g/dL (6.4-8.2); Sodium Level 139 mEq/L (136-145); Troponin High Sensitivity 46.3 pg/mL (<58.9)
[2025-01-29 22:57] LABS: Bilirubin Direct < 0.2 mg/dL (0-0.2); Bilirubin Indirect, Calculated 0.1 mg/dL (0.2-0.8)
[2025-01-30 00:43] LABS: Specific Gravity 1.022 (1.005-1.030); Urine Bilirubin NEGATIVE (Negative); Urine Blood Negative (Negative); Urine Clarity Clear (Clear); Urine Color Light-Yellow (Yellow); Urine Glucose NEGATIVE (Negative); Urine Ketones TRACE (Negative); Urine Microscopic Reflex YN NO UMIC; Urine Nitrite NEGATIVE (Negative); Urine Protein NEGATIVE (Negative); Urine Urobilinogen Normal (Normal); Urine pH 5.5 (5.0-7.0)
[2025-01-30 01:11] LABS: Barbiturates NEGATIVE (NEGATIVE); Benzodiazepines NEGATIVE (NEGATIVE); Cocaine NEGATIVE (NEGATIVE); METHAMPHETAM NEGATIVE (NEGATIVE); Methadone NEGATIVE (NEGATIVE); Opiates NEGATIVE (NEGATIVE); Phencyclidine NEGATIVE (NEGATIVE); THC Cannibis NEGATIVE (NEGATIVE)
--- NOTE | 2025-01-30 02:19 | ER ---
Nurse's Notes [facility] Name: Sanaz Wilson Age: 29 yrs Sex: Female : 1995 Arrival Date: 01/29/2025 Time: 21:14 Bed 13 Private MD: Diagnosis: Chest pain, unspecified;Palpitations Presentation: 01/29 21:22 Chief complaint: Patient states: SHE WAS WORK, HAD A DIZZY SPELL, AND FELT dd2 PALPITATIONS. REPORTS SHE CHECKED HER BP AND IT WAS ELEVATED. Coronavirus screen: At this time, the client does not indicate any symptoms associated with coronavirus-19. Ebola Screen: No symptoms or risks identified at this time. Initial Sepsis Screen: Does the patient meet any 2 criteria? No. Patient's initial sepsis screen is negative. Does the patient have a suspected source of infection? No. Patient's initial sepsis screen is negative. Risk Assessment: Do you want to hurt yourself or someone else? Patient reports no desire to harm self or others. Onset of symptoms was January 29, 2025. 21:22 Method Of Arrival: Ambulatory dd2 21:22 Acuity: NOAH 3 dd2 Triage Assessment: 21:24 General: Appears in no apparent distress. Behavior is calm, cooperative, appropriate dd2 for age. Pain: Denies pain. Cardiovascular: Reports palpitations, DIZZINESS, ELEVATED BP Patient's skin is warm and dry. 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 - Infectious Disease History:: Denies. - Social history:: Smoking status: Patient denies any tobacco usage or history of. Screenin:36 [facility] ED Fall Risk Assessment (Adult) History of falling in the last 3 months, jb4 including since admission No falls in past 3 months (0 pts) Confusion or Disorientation No (0 pts) Intoxicated or Sedated No (0 pts) Impaired Gait No (0 pts) Mobility Assist Device Used No (0 pt) Altered Elimination No (0 pt) Score/Fall Risk Level 0 - 2 = Low Risk Oriented to surroundings, Maintained a safe environment. Abuse screen: Denies threats or abuse. Nutritional screening: No deficits noted. Tuberculosis screening: No symptoms or risk factors identified. Assessment: 23:36 Reassessment: Patient appears in no apparent distress at this time. Patient and/or jb4 family updated on plan of care and expected duration. Pain level reassessed. Patient is alert, oriented x 3, equal unlabored respirations, skin warm/dry/pink. 01/30 00:42 Reassessment: Patient appears in no apparent distress at this time. Patient and/or jb4 family updated on plan of care and expected duration. Pain level reassessed. Patient is alert, oriented x 3, equal unlabored respirations, skin warm/dry/pink. 01:57 Reassessment: Patient appears in no apparent distress at this time. Patient and/or jb4 family updated on plan of care and expected duration. Pain level reassessed. Patient is alert, oriented x 3, equal unlabored respirations, skin warm/dry/pink. 02:34 Reassessment: Patient appears in no apparent distress at this time. Patient and/or jb4 family updated on plan of care and expected duration. Pain level reassessed. Patient is alert, oriented x 3, equal unlabored respirations, skin warm/dry/pink. Vital Signs: 01/29 21:22 BP 143 / 103; Pulse 101; Resp 16; Temp 98.3; Pulse Ox 100% on R/A; Weight 113.4 kg; dd2 Height 5 ft. 6 in. ; 23:37 BP 120 / 90; Pulse 82; Resp 16; Pulse Ox 100% on R/A; jb4 01/30 00:42 BP 119 / 83; Pulse 75; Resp 15; Pulse Ox 100% on R/A; jb4 01:57 BP 119 / 82; Pulse 78; Resp 16; Pulse Ox 100% on R/A; jb4 02:34 BP 130 / 88; Pulse 74; Resp 17; Pulse Ox 100% on R/A; jb4 01/29 21:22 Body Mass Index 40.35 (113.40 kg, 167.64 cm) dd2 Vitals: 02:34 Cardiac Rhythm Assessment Regular Sinus rhythm. [facility] ED Course: 01/29 21:16 Patient arrived in ED. im 21:24 Triage completed. dd2 21:24 Arm band placed on left wrist. dd2 21:27 Mark Sampson PA is PHCP. cp 21:27 Bharat Dominguez MD is Attending Physician. cp 22:24 Inserted saline lock: 18 gauge in right antecubital area, using aseptic technique. jb4 Blood collected. 22:28 Basic Metabolic Panel Sent. jb4 22:28 CBC with Diff Sent. jb4 22:28 D-Dimer Sent. jb4 22:28 LFT's Sent. jb4 22:28 Magnesium Sent. jb4 22:28 PT-INR Sent. jb4 22:28 Troponin HS Sent. jb4 22:29 Ab Cerna, RN is Primary Nurse. jb4 22:48 XRAY Chest (1 view) In Process Unspecified. EDMS 23:20 US Extremity Venous W Compression Vikash In Process Unspecified. EDMS 23:36 Patient has correct armband on for positive identification. Bed in low position. Call jb4 light in reach. Side rails up X 1. Provided Education on: plan of care. 01/30 00:40 UA Rfx Jim Cult if indicated Sent. jb4 00:40 Test, Urine Sent. jb4 00:40 UDS Sent. jb4 01:57 No provider procedures requiring assistance completed. jb4 02:18 Modesto Schwarz MD is Hospitalizing Provider. cp 03:04 CT Chest For PE Angio In Process Unspecified. EDMS 03:08 Patient admitted, IV remains in place. jb4 Administered Medications: 03:00 Drug: Aspirin PO Chewable Tablet 324 mg PO once; 81 mg tablets x 4 Route: PO; jb4 03:01 Follow up: Response: Medication administered at discharge. jb4 03:01 Drug: Enoxaparin Sub-Q 1 mg/kg Sub-Q once Route: Sub-Q; Site: right lower abdomen; jb4 03:01 Follow up: Response: Medication Administered at Departure jb4 Medication: 01/29 23:37 VIS not applicable for this client. jb4 Outcome: 01/30 02:19 Decision to Hospitalize by Provider. cp 03:09 Admitted to ER Hold. Please see [facility] for further documentation. jb4 03:09 Condition: stable 03:09 Discharge instructions given to patient, Instructed on the need for admit, Demonstrated understanding of instructions, 11:12 Patient left the ED. iw Signatures: Dispatcher [employer] Mikayla Mayfield, RN RN iw Mark Sampson PA PA cp Bryson, James RN RN jb4 Vanessa Restrepo DIANA, RN RN dd2
--- NOTE | 2025-01-30 02:20 | EDPHYS ---
Physician Documentation [facility] Name: Sanaz Wilson Age: 29 yrs Sex: Female : 1995 Arrival Date: 01/29/2025 Time: 21:14 Bed 13 Private MD: ED Physician Bharat Dominguez HPI: 01/29 22:15 This 29 yrs old Female presents to ER via Ambulatory with complaints of Palpitations, cp High Blood Pressure. 22:15 The patient presents with a history of irregular heart beat. cp 22:15 Associated signs and symptoms: Pertinent positives: chest pain, lightheadedness, dizzy, cp Pertinent negatives: cough, fever, syncope. 22:15 Onset: The symptoms/episode began/occurred today, while at work. cp 22:15 Severity of symptoms: in the emergency department the symptoms have improved. 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 - Infectious Disease History:: Denies. - Social history:: Smoking status: Patient denies any tobacco usage or history of. ROS: 22:20 Constitutional: Negative for body aches, chills, fever, poor PO intake, cp 22:20 Cardiovascular: Positive for chest pain, palpitations, cp 22:20 Respiratory: Negative for cough, shortness of breath, wheezing, 22:20 Abdomen/GI: Negative for abdominal pain, vomiting, diarrhea, constipation, 22:20 Neuro: Positive for dizziness, Negative for altered mental status, headache, numbness, syncope, near syncope, weakness, 22:20 Eyes: Negative for injury, pain, redness, and discharge, cp 22:20 All other systems are negative, cp Exam: 22:25 Constitutional: The patient appears in no acute distress, alert, awake, cp non-diaphoretic, non-toxic, well developed, well nourished, obese, 22:25 Head/Face: Normocephalic, atraumatic. cp 22:25 Eyes: Periorbital structures: appear normal, Conjunctiva: normal, no exudate, no injection, Sclera: no appreciated abnormality, Lids and lashes: appear normal, bilaterally, 22:25 ENT: External ear(s): are unremarkable, Nose: is normal, Mouth: Lips: moist, Oral mucosa: moist, Posterior pharynx: Airway: no evidence of obstruction, patent, 22:25 Chest/axilla: Inspection: normal, 22:25 Cardiovascular: Rate: normal, Rhythm: regular, Edema: is not appreciated, JVD: is not appreciated, 22:25 Respiratory: the patient does not display signs of respiratory distress, Respirations: normal, no use of accessory muscles, no retractions, labored breathing, is not present, Breath sounds: are clear throughout, no decreased breath sounds, no stridor, no wheezing, 22:25 Abdomen/GI: Inspection: abdomen appears normal, Palpation: abdomen is soft and cp non-tender, in all quadrants, 22:25 Back: pain, is absent, ROM is normal, 22:25 Neuro: Orientation: to person, place \T\ time. Mentation: is normal, Cerebellar function: is grossly normal, Motor: moves all fours, strength is normal, Sensation: is normal, 22:37 ECG was reviewed by the Attending Physician. Vital Signs: 21:22 BP 143 / 103; Pulse 101; Resp 16; Temp 98.3; Pulse Ox 100% on R/A; Weight 113.4 kg; dd2 Height 5 ft. 6 in. ; 23:37 BP 120 / 90; Pulse 82; Resp 16; Pulse Ox 100% on R/A; jb4 01/30 00:42 BP 119 / 83; Pulse 75; Resp 15; Pulse Ox 100% on R/A; jb4 01:57 BP 119 / 82; Pulse 78; Resp 16; Pulse Ox 100% on R/A; jb4 02:34 BP 130 / 88; Pulse 74; Resp 17; Pulse Ox 100% on R/A; jb4 01/29 21:22 Body Mass Index 40.35 (113.40 kg, 167.64 cm) dd2 MDM: 01/29 21:28 Medical Screening Exam initiated 01/30 02:15 Data reviewed: vital signs, nurses notes, lab test result(s), EKG, I have discussed the cp patient's presentation/case with the attending Emergency Department Physician;. 02:15 Management of patient was discussed with the following: Hospitalist: Mr Franco who will cp admit after discussion and results of CT chest. Counseling: I had a detailed discussion with the patient and/or guardian regarding the historical points, exam findings, and any diagnostic results supporting the discharge/admit diagnosis, lab results, radiology results. Transition of care: After a detail discussion of the patient's case, care is transferred to Bharat Dominguez MD. 04:49 Data reviewed: vital signs, nurses notes, lab test result(s), EKG, radiologic studies, sp4 CT scan, plain films. ED course: EXAM: CTAngiography Chest With Intravenous Contrast CLINICAL HISTORY: The patient is 29 years old and is Female; Chest pain. TECHNIQUE: Axial computed tomographic angiography images of the chest with intravenous contrast. Sagittal and coronal reformatted images were created and reviewed. This CT exam was performed using one or more of the following dose reduction techniques: automated exposure control, adjustment of the mA and/or kV according to patient size, and/or use of iterative reconstruction technique. MIP reconstructed images were created and reviewed. COMPARISON: XR Chest 01/29/2025. FINDINGS: Pulmonary arteries: No PE identified. Aorta: No acute findings. No thoracic aortic aneurysm. Lungs: Unremarkable. No mass. No consolidation. Pleural space: No significant effusion. No pneumothorax. Heart: No cardiomegaly. No significant pericardial effusion. No evidence of RV dysfunction. Bones/joints: Vertebral Schmorl's nodes. Mild scoliosis. No acute fracture visualized. No dislocation. Soft tissues: Unremarkable. Lymph nodes: No pathologically enlarged lymph nodes. IMPRESSION: No PE identified. Electronically signed by: Deysi Crisostomo MD 01/30/2025 . 01/29 22:12 Order name: Basic Metabolic Panel; Complete Time: 00:32 cp 01/30 00:32 Interpretation: Normal except: CL 108; CRE 1.03; GFR 75. cp 01/29 22:12 Order name: CBC with Diff; Complete Time: 22:51 cp 01/29 22:12 Order name: D-Dimer; Complete Time: 22:51 cp 01/29 22:12 Order name: LFT's; Complete Time: 00:32 cp 01/30 00:33 Interpretation: Normal except: IBILI, CALC 0.1. cp 01/29 22:12 Order name: Magnesium; Complete Time: 00:32 cp 01/29 22:12 Order name: PT-INR; Complete Time: 22:51 cp 01/29 22:12 Order name: Troponin HS; Complete Time: 00:32 cp 01/29 22:45 Order name: UA Rfx Jim Cult if indicated; Complete Time: 01:49 cp 01/30 01:49 Interpretation: Reviewed. cp 01/29 22:45 Order name: Test, Urine; Complete Time: 01:49 cp 01/29 22:45 Order name: UDS; Complete Time: 01:49 cp 01/30 00:34 Order name: Troponin High Sensitivity: repeat 0100; Complete Time: 02:14 cp 01/30 04:37 Order name: Comprehensive Metabolic Panel EDMS 01/30 04:37 Order name: Comprehensive Metabolic Panel EDMS 01/30 04:37 Order name: Troponin High Sensitivity EDMS 01/30 04:37 Order name: Troponin High Sensitivity; Complete Time: 18:15 EDMS 01/30 04:37 Order name: Troponin High Sensitivity EDMS 01/30 04:37 Order name: Troponin High Sensitivity EDMS 01/29 22:12 Order name: XRAY Chest (1 view) cp 01/29 22:53 Order name: US Extremity Venous W Compression Vikash cp 01/30 02:15 Order name: CT Chest For PE Angio cp 01/30 04:34 Order name: Echo with Doppler EDMS 01/30 04:34 Order name: Echo with Doppler EDMS 01/29 22:12 Order name: Cardiac monitoring; Complete Time: 22:28 cp 01/29 22:12 Order name: EKG - Nurse/Tech; Complete Time: 22:38 cp 01/29 22:12 Order name: IV Saline Lock; Complete Time: 22:28 cp 01/29 22:12 Order name: Labs collected and sent; Complete Time: 22:28 cp 01/29 22:12 Order name: O2 Per Protocol; Complete Time: 22:15 cp 01/29 22:12 Order name: O2 Sat Monitoring; Complete Time: 22:15 cp EC/12 22:37 Rate is 93 beats/min. Rhythm is regular. NE interval is prolonged at 204 msec. QRS cp interval is normal. QT interval is normal. T waves are Inverted in lead aVR. Interpreted by me. Reviewed by me. Administered Medications: 01/30 03:00 Drug: Aspirin PO Chewable Tablet 324 mg PO once; 81 mg tablets x 4 Route: PO; jb4 03:01 Follow up: Response: Medication administered at discharge. jb4 03:01 Drug: Enoxaparin Sub-Q 1 mg/kg Sub-Q once Route: Sub-Q; Site: right lower abdomen; jb4 03:01 Follow up: Response: Medication Administered at Departure jb4 Disposition: 23:37 Co-signature as Attending Physician, Bharat Dominguez MD I agree with the assessment sp4 and plan of care. I reviewed the patient's care provided by the Advanced Practice Provider and agree with the diagnosis and treatment plan. Disposition Summary: 01/30/25 02:19 Hospitalization Ordered Notes: Hospitalization Status: Inpatient Admission cp Provider: Modesto Schwarz cp Condition: Stable cp Problem: new cp Symptoms: have improved cp Bed/Room Type: Standard Location: [facility] ER HOLD(01/30/25 02:30) vk Room Assignment: ERHOLD-(01/30/25 02:30) vk Diagnosis - Chest pain, unspecified cp - Palpitations cp Forms: - Medication Reconciliation Form cp - SBAR form cp - Leadership Thank You Letter cp Signatures: Dispatcher [employer] EDMS Mark Sampson PA PA cp Bryson, James, ELVIS RN jb4 Bharat Dominguez MD MD sp4 Katie Hartley DIANA, RN RN dd2 Corrections: (The following items were deleted from the chart) 01/29 22:12 22:12 BASIC METABOLIC PANEL+C.LAB.BRZ ordered. EDMS EDMS 22:12 22:12 CBC+H.LAB.BRZ ordered. EDMS EDMS 22:12 22:12 D-DIMER+COAG.LAB.BRZ ordered. EDMS EDMS 22:12 22:12 HEPATIC FUNCTION+C.LAB.BRZ ordered. EDMS EDMS 22:12 22:12 MAGNESIUM+C.LAB.BRZ ordered. EDMS EDMS 22:12 22:12 PROTIME (+INR)+COAG.LAB.BRZ ordered. EDMS EDMS 22:12 22:12 Troponin High Sensitivity+C.LAB.BRZ ordered. EDMS EDMS 22:12 22:12 Chest Single View+RAD.RAD.BRZ ordered. EDMS EDMS 22:46 22:46 UA Rfx Jim Cult if indicated+U.LAB.BRZ ordered. EDMS EDMS :46 22:46 Test, Urine+UC.LAB.BRZ ordered. EDMS EDMS 22:46 22:46 URINE DRUG SCREEN+UC.LAB.BRZ ordered. EDMS EDMS 01/30 00:35 00:35 Troponin High Sensitivity+C.LAB.BRZ ordered. EDMS EDMS 02:16 02:16 Chest For PE Angio+CT.RAD.BRZ ordered. EDMS EDMS 02: 02:19 Telemetry/MedSurg (Inpatient) cp vk 02: 02:19 cp vk 18:17 05 22:15 Associated signs and symptoms: Pertinent positives: chest pain, cp cp 01/30 18:18 0512 22:20 Neuro: Negative for altered mental status, dizziness, headache, numbness, cp syncope, near syncope, weakness, cp
[2025-01-30] MEDS ORDERED: ENOXAPARIN 80 MG/0.8 ML SQ ONE (02:55)
[2025-01-30] MEDS ORDERED: ENOXAPARIN 30 MG/0.3 ML SQ ONE (02:55)
[2025-01-30] MEDS ORDERED: ASPIRIN 81 MG CHEWABLE TABLET ONE (02:55)
--- NOTE | 2025-01-30 04:36 | P.HP ---
Certification for Inpatient Patient admitted to: Observation With expected LOS: <2 Midnights Patient will require the following post-hospital care: None Practitioner: I am a practitioner with admitting privileges, knowledge of patient current condition, hospital course, and medical plan of care. Services: Services provided to patient in accordance with Admission requirements found in Title 42 Section 412.3 of the Code of Federal Regulations Patient History Date of Service: 01/30/25 Allergies piperacillin [From Zosyn] Allergy (Verified 08/26/22 15:21) FACIAL SWELLING Sulfa (Sulfonamide Antibiotics) Allergy (Verified 10/13/13 05:31) Rash tazobactam [From Zosyn] Allergy (Verified 08/26/22 15:21) FACIAL SWELLING Home Medications: NK [No Home Meds] 08/26/22 - Past Medical/Surgical History Has patient received pneumonia vaccine in the past: No Diabetic: No -: Patient states she does not have any past medical history. -: Appendectomy. -: Bilateral carpal tunnel repair. - Family History Family History: Reviewed- Non-Contributory - Social History Smoking Status: Never smoker Alcohol use: No CD- Drugs: No Caffeine use: Yes Place of Residence: Home Review of Systems 10-point ROS is otherwise unremarkable Cardiovascular: Other (Complaint of tachycardia.) Neurological: Other (Complaint of prior dizziness.) Physical Examination - Physical Exam General: Alert, In no apparent distress, Oriented x3 HEENT: Atraumatic, Normocephalic, PERRLA, Mucous membr. moist/pink, Sclerae nonicteric Neck: Supple, 2+ carotid pulse no bruit, JVD not distended, No Thyromegaly, No LAD Respiratory: Clear to auscultation bilaterally, Normal air movement Cardiovascular: Normal pulses, Regular rate/rhythm, Normal S1 S2, Abnormal S3, No gallops, No rubs, No murmurs Capillary refill: <2 Seconds Gastrointestinal: Normal bowel sounds, Soft and benign, Non-distended, W/out hepatomegaly, No ascites, No tenderness, No masses, No rebound, No guarding Musculoskeletal: No clubbing, No swelling, No contractures, No erythema, No tenderness, No warmth Integumentary: No rashes, No breakdown, No tenderness/swelling, No warmth Neurological: Normal gait, Normal speech, Normal strength at 5/5 x4 extr, Normal tone, Sensation intact, Cranial nerves 3-12 intact, Normal reflexes 2+, Normal affect Lymphatics: No axilla or inguinal lymphadenopathy External genitalia: No edema Rectal: Normal - Studies Laboratory Data (last 24 hrs) 01/29/25 01/29/25 01/29/25 22:27 22:27 22:27 WBC 9.00 Hgb 13.2 Hct 38.4 Plt Count 237 PT 12.4 INR 1.09 Sodium 139 Potassium 3.7 BUN 14 Creatinine 1.03 H Glucose 95 Magnesium 1.8 Total Bilirubin 0.3 AST 16 ALT 22 Alkaline Phosphatase 83 Assessment and Plan - Plan Patient is a pleasant 29-year-old female with no significant past medical history, presents to the ER today complaining of dizziness, tachycardia, and complaint of heart pounding. Patient also has an abnormal troponin initial of 46.3, repeat 162.7. Denies of any chest pain, shortness of breath, EKG with no ST abnormalities. Patient states in she had a treadmill stress test and was negative. (1)Dizziness, abnormal troponin trending upwards. Patient denies with associated chest pain, EKG with no ST abnormalities. First troponin 46.3, repeat 162.7. Patient had a CT of chest and thorax negative. Patient also states that she had a treadmill stress test done on 01/14/25, and was negative according to the patient. -Serial troponin. -Order echocardiogram. Patient states her doctor was planning to do an echocardiogram as outpatient and . -Consult director sales support. (3)Explained entire treatment plan to the patient, solicit questions answered and voiced understanding. Discharge Plan: Home Plan to discharge in: 48 Hours - Advance Directives Does patient have a Living Will: No Does patient have a Durable POA for Healthcare: No - Code Status/Comfort Care Code Status Assessed: Yes Code Status: Full Code
--- NOTE | 2025-01-30 04:49 | RAD REPORT ---
EXAM: CT Angiography Chest With Intravenous Contrast CLINICAL HISTORY: The patient is 29 years old and is Female; Chest pain. TECHNIQUE: Axial computed tomographic angiography images of the chest with intravenous contrast. Sagittal and coronal reformatted images were created and reviewed. This CT exam was performed using one or more of the following dose reduction techniques: automated exposure control, adjustmen t of the mA and/or kV according to patient size, and/or use of iterative reconstruction technique. MIP reconstructed images were created and reviewed. COMPARISON: XR Chest 01/29/2025. FINDINGS: Pulmonary arteries: No PE identified. Aorta: No acute findings. No thoracic aortic aneurysm. Lungs: Unremarkable. No mass. No consolidation. Pleural space: No significant effusion. No pneumothorax. Heart: No cardiomegaly. No significant pericardial effusion. No evidence of RV dysfunction. Bones/joints: Vertebral Schmorl's nodes. Mild scoliosis. No acute fracture visualized. No dislocation. Soft tissues: Unremarkable. Lymph nodes: No pathologically enlarged lymph nodes. IMPRESSION: No PE identified. Electronically signed by: Deysi Crisostomo MD 01/30/2025 04:46 AM T V2 Due to temporary technical issues with the PACS/[employer] reporting system, reports are being eulogio d by the in-house radiologist without review as a courtesy to ensure prompt reporting the interpreting radiologist is fully responsible for the content of the report. Transcribed Date/Time: 01/30/2025 4:49 AM
--- NOTE | 2025-01-30 06:10 | RAD REPORT ---
EXAM DESCRIPTION: Chest Single View CLINICAL HISTORY: 29 years Female PALPITATIONS COMPARISON: None. FINDINGS: The cardiomediastinal silhouette appears unremarkable. No consolidating infiltrates or pleural effusions. No pneumothorax. IMPRESSION: No acute abnormality is identified. Electronically signed by: Gerardo Esteban MD 01/29/2025 11:31 PM CDT RP Due to temporary technical issues with the PACS/[employer] reporting system, reports are being eulogio d by the in-house radiologist without review as a courtesy to ensure prompt reporting the interpreting radiologist is fully responsible for the content of the report. Transcribed Date/Time: 01/30/2025 6:10 AM
--- NOTE | 2025-01-30 08:13 | RAD REPORT ---
EXAM DESCRIPTION: Extrem Venous W Compress Vikash CLINICAL HISTORY: 29 years Female SWELLING COMPARISON: None TECHNIQUE: Duplex imaging performed to evaluate the bilateral lower extremity venous structures. Co mpression imaging and augmentation imaging performed. The common femoral, superficial femoral, popliteal, greater saphenous and posterior tibial veins were examined. FINDINGS: No thrombus is identified in the bilateral lower extremity venous structures. IMPRESSION: No DVT is identified in the bilateral lower extremities. Electronically signed by: Gerardo Esteban MD 01/29/2025 11:33 PM CDT D ue to temporary technical issues with the PACS/[employer] reporting system, reports are being signed by the in-house radiologist without review as a courtesy to ensure prompt reporting the [facility] radiologist is fully responsible for the content of the report. Transcribed Date/Time: 01/30/2025 8:12 AM
[2025-01-30] MEDS ORDERED: HEPARIN 5000 UNIT/ML 1 ML VIAL ONE ×2 (08:22→11:12)
[2025-01-30 08:38] VITALS: BMI 40.3
[2025-01-30] MEDS: ENOXAPARIN 40 MG/0.4 ML SQ SCH (09:00)
[2025-01-30] MEDS ORDERED: ENOXAPARIN 40 MG/0.4 ML SQ ONE (09:18)
--- NOTE | 2025-01-30 10:34 | P.CNS ---
Date of Consult: 01/30/25 Chief Complaint: Palpitation History of Present Illness: Patient with PMH of palpitations, presented with flutter sensation in chest yeterday followed by fast heart rate, felt dizzy and some chest tightness with it, denies any other cardiac symptoms. Allergies piperacillin [From Zosyn] Allergy (Verified 08/26/22 15:21) FACIAL SWELLING Sulfa (Sulfonamide Antibiotics) Allergy (Verified 10/13/13 05:31) Rash tazobactam [From Zosyn] Allergy (Verified 08/26/22 15:21) FACIAL SWELLING Home medications list reviewed: Yes Home Medications: NK [No Home Meds] 08/26/22 - Past Medical/Surgical History Diabetic: No -: Patient states she does not have any past medical history. -: Appendectomy. -: Bilateral carpal tunnel repair. - Social History Smoking Status: Never smoker Alcohol use: No CD- Drugs: No Caffeine use: Yes Place of Residence: Home Review of Systems 10-point ROS is otherwise unremarkable Physical Examination Temp Pulse Resp BP Pulse Ox 98.1 F 65 16 133/83 99 01/30/25 08:00 01/30/25 08:00 01/30/25 08:00 01/30/25 08:00 01/30/25 08:00 General: Alert, In no apparent distress HEENT: Atraumatic, PERRLA, Mucous membr. moist/pink, EOMI, Sclerae nonicteric Neck: Supple, 2+ carotid pulse no bruit, No LAD, Without JVD or thyroid abnormality Respiratory: Clear to auscultation bilaterally, Normal air movement Cardiovascular: Regular rate/rhythm, Normal S1 S2 Gastrointestinal: Normal bowel sounds, No tenderness Musculoskeletal: No tenderness Integumentary: No rashes Neurological: Normal gait, Normal speech, Normal tone, Normal affect Lymphatics: No axilla or inguinal lymphadenopathy Laboratory Data (last 24 hrs) 01/29/25 01/29/25 01/29/25 22:27 22:27 22:27 WBC 9.00 Hgb 13.2 Hct 38.4 Plt Count 237 PT 12.4 INR 1.09 Sodium 139 Potassium 3.7 BUN 14 Creatinine 1.03 H Glucose 95 Magnesium 1.8 Total Bilirubin 0.3 AST 16 ALT 22 Alkaline Phosphatase 83 - Problems (1) NSTEMI (non-ST elevated myocardial infarction) Current Visit: Yes Status: Acute Plan: NPO for coronary angiogram ASA 81 mg daily Crestor 20 mg daily (2) Palpitations Current Visit: Yes Status: Acute Plan: patient had a monitor in office and she is suppose to follow up on results if no arrhythmia seen, then plan for outpatient referral for EP. start Toprol XL 25 mg daily continue to monitor on tele (3) LACIE (acute kidney injury) Current Visit: Yes Status: Acute Plan: gentle hydration is recommended.
[2025-01-30] MEDS ORDERED: HEPARIN 10,000 UNIT/10 ML VIAL IV ONE (11:11)
[2025-01-30] MEDS ORDERED: ATROPINE SULF 1 MG/10 ML SYR IV ONE (11:11)
[2025-01-30] MEDS ORDERED: MIDAZOLAM HCL 2 MG/2 ML INJ ONE (11:11)
[2025-01-30] MEDS ORDERED: HEPA 1000U/500MLS 2,000 UNIT/1,000 ML BAG IV ONE (11:11)
[2025-01-30] MEDS ORDERED: LIDOCAINE 1% 20 ML MDV ONE (11:11)
[2025-01-30] MEDS ORDERED: FENTANYL CITR 100 MCG/2 ML ONE (11:12)
[2025-01-30] MEDS ORDERED: ASPIRIN 325 MG TAB ONE (11:12)
[2025-01-30] MEDS ORDERED: CLOPIDOGREL 75 MG TABLET ONE (11:12)
[2025-01-30] MEDS ORDERED: TICAGRELOR 90 MG TABLET PO ONE (11:12)
[2025-01-30] MEDS: NA CHLORIDE 0.9% 500 ML ONE (11:13)
--- NOTE | 2025-01-30 16:28 | P.PN ---
Date of Service: 01/30/25 Patient plan for cardiac catheterization today. He denies any chest pain. Troponin trended up to 162. Aspirin, statin. Echocardiogram. Further management per cardiology
[2025-01-30] MEDS: ACETAMINOPHEN 325 MG TABLET PO PRN (18:07)
--- NOTE | 2025-01-30 21:31 | OP ---
Date of Procedure: 01/30/2025 Surgeon: William Chaves Procedure Performed: Selective coronary angiogram. Indication For Procedure: Chest pains, mild leak of troponin. Complications: None. Estimated Blood Loss: Less than 50 cc. Access: Right radial, closed by TR band. Sedation Time: Less than 20 minutes. Description Of Procedure: After risks, and benefits, and alternatives were explained to the patient, patient agreed to proceed with procedure and signed informed consent. The patient was brought back to the laborer [facility], prepped and draped in sterile fashion. Time-out was performed. Sedation was admini stered. Next, right radial access was obtained using ultrasound-guided micropuncture technique. Tig er 4.0 catheter was advanced to the aortic root. Selective angiogram was done using the same cathete r. At the end of procedure, catheter was removed over a J-wire. Sheath was removed. TR band was ap plied. Hemostasis was achieved, and the patient was moved to recovery in stable condition. Findings: 1. Left main normal. 2. LAD normal. 3. Left circ normal. 4. RCA normal. Assessment And Plan: Normal coronaries. Plan is to continue medical management. KORTNEY/JACQUELIN Voice ID: [id number] Report ID: [id number]
[2025-01-30] MEDS: MAGNESIUM SULFATE 1 gm IVPB 1 GM/100 ML BAG IV ONE (21:56)
[2025-01-30] MEDS: POTASSIUM CL SA 10 MEQ TAB PO ONE (21:56)
[2025-01-30 23:14] VITALS: O2SAT 100
[2025-01-31 04:42] LABS: Albumin 3.5 g/dL (3.4-5.0); Albumin/Globulin Ratio 1.1 (1.1-1.8); Anion Gap 9.9 mEq/L (5.0-15.0); Bilirubin Total 0.5 mg/dL (0.2-1.0); Globulin 3.1 g/dL (2.3-3.5); Potassium 3.9 mEq/L (3.5-5.1); Protein, Total 6.6 g/dL (6.4-8.2)
--- NOTE | 2025-01-31 10:52 | P.PN ---
Subjective Date of Service: 01/31/25 Chief Complaint: Palpitation Subjective: No new changes, No C/O voiced, Tolerating diet, Ambulating, Improving Review of Systems 10-point ROS is otherwise unremarkable Physical Examination - Vital Signs Temperature: 97.9 F Blood Pressure: 125/76 Pulse: 59 Respirations: 18 Pulse Ox (%): 95 - Physical Exam General: Alert, In no apparent distress HEENT: Atraumatic, PERRLA, EOMI Neck: Supple, JVD not distended Respiratory: Clear to auscultation bilaterally, Normal air movement Cardiovascular: Regular rate/rhythm, Normal S1 S2 Gastrointestinal: Normal bowel sounds, No tenderness Musculoskeletal: No tenderness Integumentary: No rashes Neurological: Normal speech, Normal tone, Normal affect Lymphatics: No axilla or inguinal lymphadenopathy - Studies Medications List Reviewed: Yes Assessment And Plan - Current Problems (Diagnosis) (1) NSTEMI (non-ST elevated myocardial infarction) Current Visit: Yes Status: Acute Plan: coronary angiogram done and shown normal coronaries ASA 81 mg daily Crestor 20 mg daily (2) Palpitations Current Visit: Yes Status: Acute Plan: patient had a monitor in office and she is suppose to follow up on results if no arrhythmia seen, then plan for outpatient referral for EP. start Toprol XL 25 mg daily continue to monitor on tele (3) LACIE (acute kidney injury) Current Visit: Yes Status: Acute Plan: gentle hydration is recommended.
--- NOTE | 2025-01-31 12:23 | EKG ---
Test Date: 2025-01-29 Test Time: 22:34:12 Monument Letterer: JOE MEASUREMENT RESULTS: Intervals: Rate: 93 AZ: 204 QRSD: 82 QT: 360 QTc: 447 Kathleen: P: 65 AZ: 204 QRS: 85 T: 9 INTERPRETIVE STATEMENTS: Normal sinus rhythm Normal ECG No previous ECG available for comparison Electronically Signed On 01-31-25 12:20:53 CDT by William Chaves
[2025-01-31 13:00] VITALS: BP 120/77; TEMP 98
--- NOTE | 2025-01-31 14:55 | P.DS ---
Admission Date: 01/30/25 Discharge Date: 01/31/25 Disposition: ROUTINE DISCHARGE Discharge Condition: FAIR Reason for Admission: Palpitation Hospital Course: Diagnosis Elevated troponin Palpitation Dizziness Morbid obesity 29-year-old woman with no significant past medical history, presented to the ER today complaining of dizziness, tachycardia, and heart pounding. Patient also has an abnormal troponin initial of 46.3, repeat 162.7. EKG with no ST abnormalities. Patient states in she had a treadmill stress test and was negative. Patient was hospitalized, troponin trended peaked at 162 and then trended down. Patient was evaluated by cardiology, heart catheterization was done which was unremarkable and showed normal occlusions to warrant continuous intervention. Patient heart rates ranged from 59 to the 70s. Given patient's intermittent palpitation with tachycardia, cardiology recommended Toprol-XL 25 mg daily. Patient advised to follow-up with cardiology. Patient may need an EP study. Vital Signs/Physical Exam: Temp Pulse Resp BP Pulse Ox 98.0 F 73 18 120/77 98 01/31/25 12:00 01/31/25 12:00 01/31/25 12:00 01/31/25 12:00 01/31/25 12:00 General: Alert, In no apparent distress, Oriented x3, Obese HEENT: Mucous membr. moist/pink, Sclerae nonicteric Neck: JVD not distended Respiratory: Clear to auscultation bilaterally, Normal air movement Cardiovascular: No edema, Regular rate/rhythm, Normal S1 S2 Capillary refill: <2 Seconds Gastrointestinal: Normal bowel sounds, Soft and benign, Non-distended, No tenderness Musculoskeletal: No swelling, No tenderness Integumentary: No rashes, No cyanosis Neurological: Normal strength at 5/5 x4 extr, Cranial nerves 3-12 intact Lymphatics: No axilla or inguinal lymphadenopathy Laboratory Data at Discharge: WBC 9.00 thou/uL (4.3-10.9) 01/29/25 22:27 Hgb 13.2 g/dL (12.0-15.0) 01/29/25 22:27 Hct 38.4 % (36.0-45.0) 01/29/25 22:27 Plt Count 237 thou/uL (152-406) 01/29/25 22:27 PT 12.4 SECONDS (10-13.0) 01/29/25 22:27 INR 1.09 01/29/25 22:27 Sodium 138 mEq/L (136-145) 01/31/25 04:00 Potassium 3.9 mEq/L (3.5-5.1) 01/31/25 04:00 BUN 17 mg/dL (7-18) 01/31/25 04:00 Creatinine 0.90 mg/dL (0.55-1.02) 01/31/25 04:00 Glucose 92 mg/dL (74-106) 01/31/25 04:00 Magnesium 1.8 mg/dL (1.6-2.4) 01/29/25 22:27 Total Bilirubin 0.5 mg/dL (0.2-1.0) 01/31/25 04:00 AST 11 U/L (15-37) L 01/31/25 04:00 ALT 20 U/L (13-56) 01/31/25 04:00 Alkaline Phosphatase 70 U/L (45-117) 01/31/25 04:00 Home Medications: Metoprolol Succinate [Toprol Xl] 25 mg PO DAILY #30 tab 01/31/25 New Medications: Metoprolol Succinate [Toprol Xl] 25 mg PO DAILY #30 tab Physician Discharge Instructions: 29-year-old woman with no significant past medical history, presented to the ER today complaining of dizziness, tachycardia, and heart pounding. Patient also has an abnormal troponin initial of 46.3, repeat 162.7. EKG with no ST abnormalities. Patient states in she had a treadmill stress test and was negative. Patient was hospitalized, troponin trended peaked at 162 and then trended down. Patient was evaluated by cardiology, heart catheterization was done which was unremarkable and showed normal occlusions to warrant continuous intervention. Patient heart rates ranged from 59 to the 70s. Given patient's intermittent palpitation with tachycardia, cardiology recommended Toprol-XL 25 mg daily. Patient advised to follow-up with cardiology. Patient may need an EP study. New medication: Toprol-XL 25 mg daily Diet: AHA Activity: Ad julian Followup: NONE,NONE [Primary Care Provider] - Oleg Guerra MD [ACTIVE - CAN ADMIT] - 1-2 Weeks Time spent managing pt's care (in minutes): 27
--- NOTE | 2025-02-01 13:30 | ECHO ---
HEIGHT: 5 ft 6 in WEIGHT: 250 lb 0 oz DATE OF STUDY: 01/31/[address]: Brady Franco NP 2-DIMENSIONAL: YES M.MODE: YES DOPPLER: YES COLOR FLOW: YES TDS: YES PORTABLE: YES DEFINITY: NO BUBBLE STUDY: NO DIAGNOSIS: ELEVATED TROPONIN, TACHYCARDIA, DIZZINESS CARDIAC HISTORY: CATHERIZATION: NO SURGERY: NO PROSTHETIC VALVE: NO PACEMAKER: NO MEASUREMENTS (cm) DIASTOLIC (NORMALS) SYSTOLIC (NORMALS) IVSd 0.9 (0.6-1.2) LA Diam 2.8 (1.9-4.0) LVEF 60-65% LVIDd 3.8 (3.5-5.7) LVIDs 2.6 (2.0-3.5) %FS 32% LVPWd 1.2 (0.6-1.2) Ao Diam 2.7 (2.0-3.7) 2 DIMENSIONAL ASSESSMENT: RIGHT ATRIUM: NORMAL LEFT ATRIUM: NORMAL RIGHT VENTRICLE: NORMAL LEFT VENTRICLE: NORMAL TRICUSPID VALVE: NORMAL MITRAL VALVE: NORMAL PULMONIC VALVE: NORMAL AORTIC VALVE: NORMAL PERICARDIAL EFFUSION: NONE AORTIC ROOT: NORMAL LEFT VENTRICULAR WALL MOTION: NORMAL. DOPPLER/COLOR FLOW: NORMAL. COMMENTS: 1. NORMAL LEFT VENTRICULAR SYSTOLIC FUNCTION. LEFT VENTRICULAR EJECTION FRACTION 60-65%. NORMAL WALL MOTION. 2. NORMAL DIASTOLIC FUNCTION. TECHNOLOGIST: AMANDA NICHOLAS
== END 2025-01-31 16:00 | disposition home or self-care (01) | DRG 281 ==
LOC: ER 21:14 → ERHOLD 01-30 07:11 → 4TH 01-30 16:47
PROVIDERS: ATTEND Internal Medicine
PROC: 4A023N7 Measurement of Cardiac Sampling and Pressure, Left Heart, Percutaneous Approach (ICD-10-PCS; principal; 2025-01-30)
PROC: B2111ZZ Fluoroscopy of Multiple Coronary Arteries using Low Osmolar Contrast (ICD-10-PCS; 2025-01-30)
DX: I21.4 Non-ST elevation (NSTEMI) myocardial infarction (principal); N17.9 Acute kidney failure, unspecified; Z68.41 Body mass index [BMI] 40.0-44.9, adult; E66.01 Morbid (severe) obesity due to excess calories; Z88.2 Allergy status to sulfonamides; Z90.49 Acquired absence of other specified parts of digestive tract
CPT/HCPCS: 36415; 71045; 71275; 76937; 80048; 80053; 80076; 80307; 81003; 81025; 83735; 84484; 85025; 85379; 85610; 93005; 93306; 93454; 93970; 96372; 99152; 99153; 99285; C1893; J0461; J1644; J1650; J2003; J2250; J3010; J3475; J7040; Q9966; Q9967